=== PATIENT | female | born 1990 | race Two or more races ===

== ENCOUNTER 2022-12-05 11:21 | Inpatient (IN) | payer OTHER ==
[~2022-12-05] VITALS: Ht 165.1 cm; Wt 108.4 kg
[2022-12-05] MEDS ORDERED: BAYER CHILDREN'81 MG PO (12:43)
[2022-12-05] MEDS ORDERED: PRENATAL TABLE1 EAC1 PO (12:43)
[2022-12-05] MEDS ORDERED: TRANDATE300 MG PO (12:44)
== END 2022-12-08 13:51 | disposition home or self-care (01) | DRG 807 ==
LOC: LDR 11:21 → OB/GYN 12-06 15:10
PROVIDERS: ADMIT Obstetrics & Gynecology Gynecology; ATTEND Obstetrics & Gynecology Gynecology
PROC: 4A1HXCZ Monitoring of Products of Conception, Cardiac Rate, External Approach (ICD-10-PCS; 2022-12-05)
PROC: 10E0XZZ Delivery of Products of Conception, External Approach (ICD-10-PCS; principal; 2022-12-06)
DX: O16.4 Unspecified maternal hypertension, complicating childbirth (principal); Z37.0 Single live birth; Z3A.37 37 weeks gestation of pregnancy; Z20.822 Contact with and (suspected) exposure to COVID-19